=== PATIENT | female | born 1985 | race Caucasian/White ===

== ENCOUNTER 2019-08-07 07:27 | Emergency (ER) | payer OTHER, BC ==
[2019-08-07] MEDS ORDERED: Ibuprofen 600 MG Tab PO ONE (08:21)
[2019-08-07] MEDS ORDERED: Ondansetron 4 MG Tab.DIS PO ONE (08:21)
[2019-08-07] MEDS ORDERED: Acetaminophen/oxyCODONE 325-5 MG Tab PO ONE (08:21)
--- NOTE | 2019-08-07 08:25 | EDM.PDOC ---
ED HPI GENERAL MEDICAL PROBLEM - General Chief Complaint: Back Pain or Injury Stated Complaint: FALL, LOWER BACK PAIN Time Seen by Provider: 08/07/19 08:17 Source of Information: Reports: Patient History Limitations: Reports: No Limitations - History of Present Illness INITIAL COMMENTS - FREE TEXT/NARRATIVE: 34-year-old female presents to the ED after slipping and falling while getting out of her echo this morning which is a fairly high off the ground SUV. She states she slipped after 1 foot exited the vehicle and she landed directly on her buttocks and lower back. Feels pain across both sides of her lower back and Botox. No pain rating down the legs. Occurred about 0700 hrs. this morning as she was getting ready to enter the workplace. Denies hitting her head or upper back or shoulders. Denies any possibility of . Onset: Today Onset Date: 08/07/19 Onset Time: 06:55 Duration: Minutes:, Getting Worse Location: Reports: Back (Lumbar 45 vertebrae in her back), Pelvis (Upper and mid portions of the sacrum.) Quality: Reports: Ache, Throbbing Severity: Moderate (7 on a 10) Improves with: Reports: Rest (Hour she can't sit properly on one cheek of the but due to pain.) Worsens with: Reports: Other, Movement Context: Reports: Trauma (Slipped and fell on ice he surface landing hard on pavement.). 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 (see below) (None.) Lower Back Pain Score (Numeric/FACES): 7 - Related Data Allergies Allergy/AdvReac Type Severity Reaction Status Date / Time No Known Allergies Allergy Verified 08/07/19 08:14 Home Meds: Home Meds oxyCODONE HCl/Acetaminophen [Percocet 5-325 mg Tablet] 1 - 2 each PO Q4H PRN # 16 tablet 08/07/19 [Rx] Past Medical History - Past Health History Medical/Surgical History: Denies Medical/Surgical History Social & Family History - Tobacco Use Smoking Status *Q: Current Every Day Smoker Years of Tobacco use: 14 Packs/Tins Daily: 0.5 - Caffeine Use Caffeine Use: Reports: Coffee, Energy Drinks - Recreational Drug Use Recreational Drug Use: Yes Drug Use in Last 12 Months: Yes Recreational Drug Type: Reports: Marijuana/Hashish - Living Situation & Occupation Occupation: Employed ED ROS GENERAL - Review of Systems Review Of Systems: See Below Constitutional: Denies: Fever, Chills, Malaise, Weakness, Fatigue, Decreased Appetite, Weight Loss HEENT: Reports: No Symptoms Respiratory: Reports: No Symptoms Cardiovascular: Reports: No Symptoms Endocrine: Reports: No Symptoms GI/Abdominal: Reports: No Symptoms : Reports: No Symptoms Musculoskeletal: Reports: Back Pain Skin: Reports: No Symptoms (See history of present illness.) Neurological: Reports: No Symptoms Psychiatric: Reports: No Symptoms Hematologic/Lymphatic: Reports: No Symptoms Immunologic: Reports: No Symptoms ED EXAM,LOWER BACK PAIN/INJURY - Physical Exam Exam: See Below Exam Limited By: No Limitations General Appearance: Alert, WD/WN, Moderate Distress Eye Exam: Bilateral Eye: Normal Inspection Throat/Mouth: Other Head: Atraumatic (No dental injuries or injuries to the tongue.), Normocephalic Neck: Normal Inspection, Supple, Non-Tender, Full Range of Motion. No: Lymphadenopathy (L), Lymphadenopathy (R) Respiratory/Chest: Other (No apparent injuries to the chest wall or ribs.) Cardiovascular: Other GI/Abdominal: Normal Bowel Sounds, Soft, Non-Tender, No Organomegaly, No Abnormal Bruit, No Mass, Pelvis Stable Back Exam: Decreased Range of Motion, Other (She has marked tenderness on palpation of the spinous processes over L4-L5 and pain of the transverse processes and facet joints at L4-L5 bilaterally. No obvious bruising or abrasions appreciated. There is marked tenderness on the superior two thirds of the sacrum in the midline as well. The coccyx appears to be on injured.). No: Full Range of Motion, CVA Tenderness (L), CVA Tenderness (R) Extremities: Normal Inspection, Normal Range of Motion, Non-Tender, Other Neurological: Alert (No injuries to the wrists hands or elbows.), Normal Mood/ Affect, CN II-XII Intact, Normal Reflexes Psychiatric: Normal Affect, Other Skin Exam: Warm, Dry (In a good deal of pain.), Intact, Normal Color, No Rash Course - Vital Signs Last Recorded V/S: Last Vital Signs Temp 36.5 C 08/07/19 08:11 Pulse 86 08/07/19 08:11 Resp 16 08/07/19 08:11 BP 121/90 08/07/19 08:11 Pulse Ox 98 08/07/19 08:11 - Orders/Labs/Meds Meds: Medications Discontinued Medications Generic Name Dose Route Start Last Admin Trade Name Ric PRN Reason Stop Dose Admin Ibuprofen 600 mg 08/07/19 08:21 08/07/19 08:29 Motrin PO 08/07/19 08:22 600 mg ONETIME ONE Administration Ondansetron HCl 4 mg 08/07/19 08:21 08/07/19 08:29 Zofran Odt PO 08/07/19 08:22 4 mg ONETIME ONE Administration Oxycodone/Acetaminophen 1 tab 08/07/19 08:21 08/07/19 08:29 Percocet 325-5 Mg PO 08/07/19 08:22 1 tab ONETIME ONE Administration - Radiology Interpretation Free Text/Narrative:: 34-year-old female who has slipped and fallen on the ice this morning with direct blow to her but talks injuring her superior two thirds of her sacrum and her lower lumbar spine particularly L4-L5 spinous processes. She can barely sit or stand. Plan CT lumbar spine CT pelvis to have a look at her sacrum and coccyx. And Percocet tablet 5/3/25 milligrams 1 by mouth with Zofran 4 mg sublingual and Motrin 600 mg by mouth. - Re-Assessments/Exams Free Text/Narrative Re-Assessment/Exam: 08/07/19 10:05 CT of the lumbar spine is within normal limits no fractures identified. No traumatic disc herniations appreciated. CT of the pelvis particularly paying attention to the sacrum reveals no pelvic fractures or fractures through the sacrum or coccyx. Therefore she will be discharged to home. Off work today. She will be offered a donut pad to use to settle on to keep the weight off of the sacrum and lower back. She will use Motrin 600 mg every 6 hours as needed for pain relief and Percocet tabs 5/3/25 milligrams one or 2 every 4-6 hours needed for pain relief. Departure - Departure Time of Disposition: 10:08 Disposition: Home, Self-Care 01 Condition: Fair Clinical Impression: Contusion of sacral region Qualifiers: Encounter type: initial encounter Qualified Code(s): S30.0XXA - Contusion of lower back and pelvis, initial encounter Strain of lumbar spine Qualifiers: Encounter type: initial encounter Qualified Code(s): S39.012A - Strain of muscle, fascia and tendon of lower back, initial encounter - Discharge Information *PRESCRIPTION DRUG MONITORING PROGRAM REVIEWED*: Not Applicable *COPY OF PRESCRIPTION DRUG MONITORING REPORT IN PATIENT MARCIA: Not Applicable Prescriptions: oxyCODONE HCl/Acetaminophen [Percocet 5-325 mg Tablet] 1 - 2 each PO Q4H PRN # 16 tablet PRN Reason: pain relief. Instructions: Contusion, [id number], Lumbosacral Strain, Tailbone Injury Referrals: PCP,None [Primary Care Provider] - Forms: ED Department Discharge, ED Return to Work/School Form Additional Instructions: Evaluation the emergency room today in regards to slip and fall outside on the ice with direct blow to the Botox injuring your upper sacrum and lower back. CT of the lumbar spine reveals no compression fractures or disc herniations. Similarly CT of the pelvis reveals no fractures through the sacrum or the tailbone area. Therefore badly bruised but not broken. Treatment is ice pack to the area one half hour out of every 4 hours today and tomorrow. Suggest donut pad to sit on for relief as it will redistribute the weight off of the sacrum and lower back. Tinea Motrin 600 mg every 6 hours as needed for relief of pain and inflammation and Percocet tablets 5/325 mg tablet 1 or 2 every 4-6 hours necessary for pain relief. SPECT about 10 days before you get back to normal. Note given to excuse you from the workplace today.
--- NOTE | 2019-08-07 09:41 | CT ---
CT lumbar spine Technique: Multiple axial sections were obtained from the top of T10 inferiorly through the L5-S1 disc. Reconstructed sagittal and coronal images were reviewed. Comparison: No prior lumbar spine imaging. Findings: Vertebral body heights and disc spaces are maintained. No fracture is identified. No traumatic disc herniation is seen. No abnormal subluxation is seen. Impression: 1. Nothing acute is appreciated on CT study of the lumbar spine. Diagnostic code #1 This report was dictated in [place] Standard Time
--- NOTE | 2019-08-07 09:41 | CT ---
CT pelvis Technique: Multiple axial sections through the pelvis were obtained. Reconstructed coronal and sagittal images were obtained. Findings: No pelvic fracture is seen. Joint spaces within both hips are maintained. Impression: 1. Nothing acute is seen on CT study of the pelvis. Diagnostic code #1 This report was dictated in [place] Standard Time
== END 2019-08-07 10:37 | disposition home or self-care (01) ==
LOC: JD.ED 07:27
DX: S39.012A Strain of muscle, fascia and tendon of lower back, initial encounter (principal); F17.210 Nicotine dependence, cigarettes, uncomplicated; W00.0XXA Fall on same level due to ice and snow, initial encounter
CPT/HCPCS: 72131; 72192; 99284; A9270; 99283